=== PATIENT | male | born 1960 | race Caucasian/White ===

== ENCOUNTER 2022-01-07 10:52 | Emergency (ER) | payer OTHER, SELFPAY ==
[2022-01-07 10:53] VITALS: BP 142/100; PULSE 90; RESP 16; TEMP 37.2; O2SAT 99; BMI 42.2
[2022-01-07 11:07] VITALS: BP 152/124; PULSE 75; RESP 23; O2SAT 100
[2022-01-07 11:19] VITALS: BP 141/118; PULSE 73; RESP 20; O2SAT 100
[2022-01-07] MEDS: Lactated Ringers 1,000 ML 999 ML IV (11:22)
[2022-01-07] MEDS: Diphth,Pertuss(Acell),Tet Vac 0.5 ML Vial IM (11:22)
--- NOTE | 2022-01-07 11:28 | ED.RN ---
pt states to dispose of boots and clothing.
--- NOTE | 2022-01-07 11:33 | ED.RN ---
bwc assessment and froi not completed. metro aware.
--- NOTE | 2022-01-07 11:36 | ED.RN ---
ana m/james heating equipment installer at [facility] stated he already received report, i did not need to give one. did inform that the froi and bwc assessment need to be completed.
[2022-01-07] MEDS: Lactated Ringers 1,000 ML 300 ML IV (11:37)
[2022-01-07 11:38] VITALS: BP 127/74; PULSE 67; RESP 22; O2SAT 99
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
[2022-01-07] MEDS: fentaNYL 100 MCG/2 ML Ampul 50 MCG IV (11:43)
--- NOTE | 2022-01-07 12:30 | ED.RN ---
ems in department
[2022-01-07 12:32] VITALS: BP 142/78
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
== END 2022-01-07 12:49 | disposition short-term general hospital (02) ==
PROVIDERS: Emergency Provider Emergency Medicine; PCP Family Medicine; Visit Provider Emergency Medicine
DX: T20.29XA Burn of second degree of multiple sites of head, face, and neck, initial encounter (principal); T22.211A Burn of second degree of right forearm, initial encounter; T21.11XA Burn of first degree of chest wall, initial encounter; T31.20 Burns involving 20-29% of body surface with 0% to 9% third degree burns; W40.8XXA Explosion of other specified explosive materials, initial encounter; Y93.02 Activity, running; Y99.0 Civilian activity done for income or pay; I10 Essential (primary) hypertension; Z79.899 Other long term (current) drug therapy
CPT/HCPCS: 96361; 96374; 99285; J7030; J7120; A4216

== ENCOUNTER 2024-03-03 08:08 | Day surgery (SDC) | payer BC, SELFPAY ==
--- NOTE | 2024-02-22 07:43 | EKG12_ITS ---
Test Reason : PRE OP Blood Pressure : / mmHG Vent. Rate : 072 BPM Atrial Rate : 072 BPM P-R Int : 194 ms QRS Dur : 094 ms QT Int : 412 ms P-R-T Axes : 034 041 024 degrees QTc Int : 451 ms Normal sinus rhythm Normal ECG Confirmed by LISSA MEYER, SERGIO ([id number]), loan expeditor REENA MELVIN ([id number]) on 02/23/2024 2:30:50 PM Referred By: Sae Kramer Confirmed By:PANKAJ ALCARAZ MD
[2024-03-03] VITALS (11 sets, daily range): BP systolic 115–136; BP diastolic 71–95; PULSE 66–77; RESP 14–18; TEMP 36.5–36.8; O2SAT 91–97; BMI 36.7
[2024-03-03] MEDS: Lactated Ringers 1,000 ML 15 ML IV ×2 (08:46→13:30)
--- NOTE | 2024-03-03 09:22 | PCM.PRE.AN2 ---
ASA Classification* ASA Classification ASA Classification: 2 Assessment & Plan Anesthesia* Anesthesia Assessment Anesthesia Assessment: Discussed sedation and/or anesthesia options, risks, benefits, and alternatives with patient/parents/legal guardian/POA. Questions invited. The patient/parents/legal guardian/POA seems to understand and agrees to proceed with anesthesia plan. Reviewed the physical assessment, medical history, allergy history and patient home medications list prior to surgery/procedure/anesthetic and documented any changes. Performed airway and anesthesia risk assessments. Anesthesia Type Anesthesia Type: General (*see written pre anesthesia record for full assessment) Anesthesia Focused Assessment* Temperature: 97.8 F Pulse Rate: 72 Blood Pressure: 132/95 Respiratory Rate: 18 Pulse Ox: 97 Airway Assessment Mouth opens: >3 cm Mallampati Score: II Focused Labs Anesthesia Preop lab: CBC CHEMISTRY COAG Pre-Assessment Diagnosis/Proposed Procedure Planned Operative Procedure(s): (L) Arthroscopy,Shoulder Rotator Cuff Repair, Subacromial Decompression, Distal Clavicle Excision, Loose Body Excision, and Biceps Tenotomy versus Mini Open Biceps Tenodesis Anesthesia History Anesthesia History - laboratory sampler: Anesthesia History - laboratory sampler Hx Hospitalization No 02/10/24 08:27 Any Problems With Anesthesia No 02/10/24 08:27 Cholinesterase deficiency No 02/10/24 08:27 You/Your Family Experience No 02/10/24 08:27 fever (hyperthermia) with Relationship Recent Exposure to Contagious No 03/03/24 08:47 Disease Does patient have nerve No 02/10/24 08:27 stimulator Patient instructed to have device shut off --Does patient have Pacemaker No 03/03/24 08:47 or ICD? When Was Last Pacemaker Check QUESTION #4 FULL TEXT: You/Your Family Experience fever (hyperthermia) with Anesthesia Last Oral Intake Last Oral intake: Last Oral Intake NPO since 00:00 03/03/24 08:47 Meds taken in AM with sips of Yes 03/03/24 08:47 water? Meds patient instructed to take am of surgery PONV PONV - laboratory sampler: PONV - laboratory sampler Female No 02/10/24 08:27 HX of Motion Sickness No 02/10/24 08:27 HX of N/V After Surgery No 02/10/24 08:27 Non-Smoker Yes 07/17/24 08:27 Duration of Surgery greater Yes 02/10/24 08:27 than 60 minutes Number of Risk Factors 2 02/10/24 08:27 PONV Score Moderate Risk 02/10/24 08:27 Height & Weight Height & Weight: Anesthesia: Height & Weight Height 6 ft 2 in 03/03/24 08:47 Weight: 129.727 kg 03/03/24 08:47 Body Mass Index (BMI) 36.7 03/03/24 08:47 Respiratory Assessment Respiratory Assessment - laboratory sampler: Respiratory Tract Infection Hx - laboratory sampler Hx Respiratory Tract Infection No 02/10/24 08:27 STOP Sleep Apnea STOP Sleep Apnea - laboratory sampler: STOP Sleep Apnea - laboratory sampler Hx Hypertension Yes: CONTROLLED WITH MED 02/10/24 08:27 Hx Sleep Apnea No 02/10/24 08:27 CPAP BIPAP Do you snore loudly (louder No 02/10/24 08:27 than talking or can be heard Do you often feel tired/ No 02/10/24 08:27 fatigued/ sleepy during daytime? Has anyone observed you stop No 02/10/24 08:27 breathing during sleep? STOP Results Negative 02/10/24 08:27 QUESTION #5 FULL TEXT : Do you snore loudly (louder than talking or can be heard through closed doors)? Tobacco Use History Tobacco Use History - laboratory sampler: Tobacco Use History - laboratory sampler Tobacco Use Smoking Status Never smoker 02/10/24 08:27 Hx Tobacco Use No 02/10/24 08:27 Years Smoking Packs Smoked per Day Smoking Cessation Date was within the last 15 years Hx Smoking Cessation Date Hx Smoking Cessation Counseling Hematologic Medial History Hematologic Hx - laboratory sampler: Hematologic Medical Hx - art museum docent Hx of Blood Transfusion No 02/10/24 08:27 Hx of Transfusion in last 3 No 02/10/24 08:27 Months Date of Last Transfusion (if within last 3 months) Ever experience any problems No 02/10/24 08:27 with transfusion(s)? Specify any problems Hx of Preganancy in last 3 N/A 02/10/24 08:27 Months Nurse Filling Out Transfusion NBUCHER 02/10/24 08:27 & Questions: Date: 02/10/24 02/10/24 08:27 Time: 08:29 02/10/24 08:27 Patient unable to answer at this time (ie. confused, unrespo /Reproduction History /Reproductive History - laboratory sampler: /Reproductive Hx- laboratory sampler Hx Now No 02/10/24 08:27 Gestational Age (in weeks): EDC: Hx Hx Para Hx Section SAB No 02/10/24 08:27 Active Medications Active Medications: Current Medications Generic Name Dose Route Start Last Admin Trade Name Freq PRN Reason Stop Dose Admin Cefazolin Sodium 3 gm/ Sodium 115 mls @ 150 mls/hr 03/03/24 10:15 Chloride IV 03/03/24 11:00 PREOP ONE Lactated Ringer's 1,000 mls @ 15 mls/hr 03/03/24 08:45 03/03/24 08:46 IV 15 mls/hr .Q48H SAI Administration PFSH Medical History Cancer Wears glasses Gout DVT (deep venous thrombosis) Non-smoker Hypertension Home Medications ?Medication ?Instructions ?Recorded ?Last Taken ?Type losartan 50 mg tablet 50 mg PO DAILY 10/04/14 03/03/24 History escitalopram oxalate 10 mg tablet 10 mg PO DAILY 02/10/24 03/03/24 History Allergy/AdvReac Type Severity Reaction Status Date / Time No Known Allergies Allergy Verified 03/03/24 09:20 Surgical History History of knee replacement procedure of left knee (~2009) Social History Smoking Status: Never smoker Review of Systems (Anesthesia) ROS Narrative System reviewed and no additional complaints, except as documented.
[2024-03-03] MEDS: Cefazolin 3 GM in 0.9% Normal Saline (100mL Bag) 100 ML IV (09:49)
[2024-03-03] MEDS: Epinephrine (1 mg/ml) 1 MG/ML VIAL (10:25)
--- NOTE | 2024-03-03 13:19 | OP.PCM_ITS ---
Report of Operation Date of Procedure: 03/03/24 Description of Surgical Findings:: Preoperative diagnosis: 1. Left shoulder rotator cuff tear 2. Left shoulder subacromial impingement syndrome 3. Left shoulder biceps tendinosis 4. Left shoulder acromioclavicular joint osteoarthritis Postoperative diagnosis: 1. Left shoulder rotator cuff tear 2. Left shoulder subacromial impingement syndrome 3. Left shoulder biceps tendinosis 4. Left shoulder acromioclavicular joint osteoarthritis 5. Left shoulder capsulitis Procedure 1. Left shoulder arthroscopic rotator cuff repair 2. Left shoulder arthroscopic subacromial decompression 3. Left shoulder biceps tenotomy, debridement of labrum, capsule, biceps labral junction Surgeon: Sae Kramer DO Surgeon'S Assistant: Bisi Handley PA-C Anesthesia: General LMA with interscalene block Child Guidance Counselor: Jg Durham CRNA Estimated blood loss: 25 cc IV fluids: Per anesthesia record Urine output: None recorded Packing/drains: None Implants: Arthrex 4.75 mm bio composite swivel lock anchor x 4 Preoperative indications: This is a active 63-year-old male seen in the outpatient setting with acute onset left shoulder pain. He had profound weakness in his supraspinatus. MRI demonstrated a full-thickness retracted tear of the supraspinatus. I recommend surgical intervention in the form of left shoulder arthroscopic rotator cuff repair, subacromial decompression. Patient also had evidence of a chronic tendinosis and biceps tenotomy was recommended, as well as distal clavicle excision for symptomatic AC joint arthrosis. Informed consent was obtained in the outpatient setting. Risks, benefits, terms the procedure reviewed with the patient at length and he agreed to proceed. Risk included but were not limited to bleeding, infection, loss of life or limb, need for additional surgery, persistent pain, nonhealing tendon or wounds, stiff ness, neurovascular injury, DVT or PE. Patient expressed understanding of these risks and wished to proceed with surgery. 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 He reports never having history of DVT. We discussed management of anticoagulation after surgery. We made a joint decision to proceed with low-dose 81 mg aspirin twice daily beginning the day of surgery as well as continuing home LATASHA hose and early mobilization for at least the first 2 weeks. Description of procedure: Patient was identified in preoperative holding area by name, medical record number, and date of . The operative extremity was marked. All questions were answered to the patient's satisfaction. An interscalene block was administered by anesthesia prior to the procedure. Patient was then brought to the operative suite at time of his procedure. He was positioned supine a sterile operating table. General anesthesia was induced and LMA was placed. Patient was then placed in lateral decubitus position with the left side up. A beanbag was used to hold the patient in the lateral decubitus position. An axillary roll was placed. Pillows were placed beneath and between his legs to for any bony prominences. We prepped and draped the left upper extremity in normal, sterile orthopedic fashion. The operative extremity was placed in traction utilizing arthroscopic bedroom with 15 pounds of tension applied to the operative extremity throughout the arthroscopic portion of the case. We performed a timeout with all parties in attendance in agreement with the side, site, and operation be performed. No concerns were voiced and we elected to proceed with surgery. 2 g Ancef was administered IV prior to incision by anesthesia staff. I first established a standard posterior portal 2 fingerbreadths inferior medial to the posterior lateral border of the scapular spine. Blunt tipped trocar and arthroscopic cannula was introduced into the glenohumeral joint. Joint was inflated with normal saline with epinephrine. Arthroscope was then introduced. Diagnostic arthroscopy was commenced. Full-thickness tearing noted at the supraspinatus with a bare footprint. Biceps tendon was significantly inflamed. Standard interval portal was then established with an 11 blade scalpel. Subscapularis was was torn at the upper third portion without significant retraction. Glenohumeral cartilage was pristine. Biceps tenotomy was performed at the biceps labral junction with the arthroscopic cautery. The tendon was allowed to retract into the groove. Degenerative labral fraying was noted as well which was debrided to a stable rim of labral tissue with a radial resector. The articular side of the supraspinatus was then debrided with the radial resector. No loose bodies were identified. I then proceeded with fixation of the subscapularis tendon tear. A single half racking hitch suture was placed at the upper border of the subscapularis and passed through the eyelet of a self punching swivel lock anchor. This was placed at the insertion of the subscapularis after suture was tension. Excellent purchase was achieved. Sutures were cut flush with the anchor. Thickened capsule in the rotator interval was also noted and released/debrided with arthroscopic cautery. I then turned my attention to the subacromial space. Arthroscopic instruments were removed. I reentered the shoulder in the subacromial space with blunt tipped trocar. Standard lateral portal was established with an 11 blade scalpel. Passport was placed for suture management during rotator cuff repair. I then skeletonized the undersurface of the acromion. A prominent downsloping spur from the anterior lateral surface of the acromion was identified. Acromioplasty was performed with the arthroscopic bur removing the spur. I then exposed the supraspinatus footprint with the cautery device. The footprint was lightly decorticated with a bur. Bursal side of the tendon tissue was debrided with a radial resector. The tissue was significantly adhered which appeared to be likely more chronic tear than the patient's history did suggest. I proceeded with an anterior interval slide with release of the CHL. Bursal adhesions were released with cautery. I was able to mobilize the cuff tissue reasonably well. I did plan to mobilize the insertion approximately 5 mm. I then decorticated the footprint and removed approximately 5 mm articular margin to medialize the cuff insertion. I began posteriorly with a simple inverted mattress repair with a fiber tape and self punching swivel lock anchor. This mobilized the cuff tissue well. I proceeded with single row repair throughout the remainder of the supraspinatus with 2 separate inverted mattress repairs with swivel lock anchor and fiber tape respectively. This reapproximate tissue well to the medialized repair. Fixation was stable. During repair there was significant collapse of the subacromial space and difficulty with visualization. I made the decision to forego the distal clavicle excision to limit morbidity to the patient. I then thoroughly lavaged the subacromial space. Arthroscopic instruments were removed. Portal sites were closed in standard fashion with a [id number] 3- 0 nylon suture. Bulky sterile compression dressing was applied. Patient was placed in UltraSling. He tolerated the procedure well without apparent complication. He was safely awoken the operative suite and extubated. He was transferred to his gurney and subsequently to PACU in stable condition. Need for skilled drafter assistant: Bisi Emmanuelle, PA-C was critical to the outcome of the case. During the course of the procedure the physician drafter assistant played a vital role. Her intimate knowledge of my steps in the procedure aided in safe and expedient completion of the procedure. The PA played a vital role in positioning particularly in obtaining the appropriate positioning. The PA was also vital in the retraction of soft tissues during the exposure and protecting vital structures. The PA was also vital and obtaining tendon reduction and assisting with hardware placement. She also played a vital role in closure and sling application with my direct supervision. Post Operative Plan: Weightbearing: Nonweightbearing left upper extremity, okay for pendulums. Range of motion of wrist elbow and hand as tolerated. Antibiotics: 2 g Ancef IV prior to incision DVT Prophylaxis: Aspirin enteric-coated 81 mg twice daily starting in PACU Morris: None Dressing: Maintain dressing x 2 days then ok to shower X-Rays: 2 weeks postop in the office Pain Medication: Oxycodone Rx upon discharge Follow-up: 2 weeks post-operatively in the office
[2024-03-03] MEDS: Ketorolac 15 MG/ML Vial IV (13:26)
--- NOTE | 2024-03-03 13:54 | PCM.POST.ANE ---
Anesthesia: Postop Eval I Current Vital Signs Temperature: 97.7 F Pulse Rate: 67 Blood Pressure: 125/85 Respiratory Rate: 14 Pulse Ox: 93 Oxygen Delivery Method: Room Air Assessment Airway patent: Yes Spontaneous unlabored respirations: Yes Mental status: Awake and Calm nausea: No Vomiting: No Anesthesia Complication: No Fluid Hydration Crystalloid volume administer (ml): 1,200 Total IV fluid infused: 1,200 Progress Note Anesthesia document: Postop Eval 1 completed: Yes
[2024-03-03] MEDS: Aspirin 81 MG TAB.CHEW PO (14:08)
--- NOTE | 2024-03-03 15:11 | POSTOPAN2_ITS ---
Anesthesia Postop Eval I Sum Postop Eval Completion status Anesthesia document: Postop Eval 1 completed: Yes Anesthesia Postop Eval I Summary Anesthesia Postop Eval I Summary: Anesthesia Postop Eval I: Assessment Summary Airway patent Yes 03/03/24 13:55 [email or web address] Spontaneous unlabored Yes 03/03/24 13:55 [email or web address] respirations Mental status Awake,Calm 03/03/24 13:55 [email or web address] nausea No 03/03/24 13:55 [email or web address] Vomiting No 03/03/24 13:55 [email or web address] Anesthesia Postop Eval I: Fluid Summary Crystalloid volume administer 1,200 03/03/24 13:55 [email or web address] (ml) Colloids volume administered ( ml) Blood Product volume administered (ml) Total IV fluid infused 1,200 03/03/24 13:55 [email or web address] Anesthesia Postop Eval I: Summary Notes Anesthesia Complication No 03/03/24 13:55 [email or web address] Anesthesia Complication Comment: Post-operative progress note Anesthesia: Postop Eval II Evaluation Mental status: Awake Pain Level: 0 nausea: No Vomiting: No
--- NOTE | 2024-03-03 15:11 | PCM.POSTANE2 ---
Anesthesia Postop Eval I Sum Postop Eval Completion status Anesthesia document: Postop Eval 1 completed: Yes Anesthesia Postop Eval I Summary Anesthesia Postop Eval I Summary: Anesthesia Postop Eval I: Assessment Summary Airway patent Yes 03/03/24 13:55 [email or web address] Spontaneous unlabored Yes 03/03/24 13:55 [email or web address] respirations Mental status Awake,Calm 03/03/24 13:55 [email or web address] nausea No 03/03/24 13:55 [email or web address] [email or web address] Vomiting No 03/03/24 13:55 [email or web address] [email or web address] Anesthesia Postop Eval I: Fluid Summary Crystalloid volume administer 1,200 03/03/24 13:55 [email or web address] (ml) Colloids volume administered ( ml) Blood Product volume administered (ml) Total IV fluid infused 1,200 03/03/24 13:55 [email or web address] Anesthesia Postop Eval I: Summary Notes Anesthesia Complication No 03/03/24 13:55 [email or web address] [email or web address] Anesthesia Complication Comment: Post-operative progress note Anesthesia: Postop Eval II Evaluation Mental status: Awake Pain Level: 0 nausea: No Vomiting: No
== END 2024-03-03 14:29 | disposition home or self-care (01) ==
LOC: SDC 08:09 → AC 08:11
PROVIDERS: PCP Family Medicine; Referring Provider Student in an Organized Health Care Education/Training Program; Visit Provider Student in an Organized Health Care Education/Training Program
PROC: (CPT 29827; principal; 2024-03-03 09:55)
DX: M19.012 Primary osteoarthritis, left shoulder (principal); M75.42 Impingement syndrome of left shoulder; M77.9 Enthesopathy, unspecified; M75.102 Unspecified rotator cuff tear or rupture of left shoulder, not specified as traumatic; M75.120 Complete rotator cuff tear or rupture of unspecified shoulder, not specified as traumatic; Z86.718 Personal history of other venous thrombosis and embolism; M10.9 Gout, unspecified; I10 Essential (primary) hypertension; Z96.652 Presence of left artificial knee joint
CPT/HCPCS: 29827; 29826; 29999; 01630; 93005; J7120; J2405